=== PATIENT | male | born 1950 | race Caucasian/White ===

== ENCOUNTER 2017-01-09 17:39 | Inpatient (IN) ==
[2017-01-09] MEDS ORDERED: NS 1,000 ML IV ONE (17:52)
[2017-01-09] MEDS ORDERED: VANCOMYCIN IV PER PHARMACY MISC SCH (18:29)
[2017-01-09] MEDS ORDERED: LOVENOX SUBQ SCH (18:29)
[2017-01-09 18:42] LABS: MANUAL DIFF NEEDED? NO
[2017-01-09 18:45] LABS: BASO% 0.3 % (0.0-0.8); EOS% 2.5 % (0.0-10.0); HEMATOCRIT 43.7 % (42.0-52.0); HEMOGLOBIN 14.9 g/dL (14.0-18.0); IMM GRAN# 0.03 X1000 (0.0-0.04); IMM GRAN% 0.4 % (0.0-0.5); LYMPH# 0.85 X1000 (1.2-3.4); LYMPH% 10.7 % (20.5-51.1); MCH 32.6 PG (27-31); MCHC 34.1 g/dL (33-37); MCV 95.6 FL (81-99); MONO# 0.65 X1000 (0.11-0.59); MONO% 8.2 % (1.7-9.3); MPV 10.9 FL (7.4-10.4); NEUT% 77.9 % (42.2-75.2); PLT 135 X1000 (130-400); RBC 4.57 XMIL (4.7-6.1)
[2017-01-09 19:03] LABS: URINE MICRO REVIEW NEEDED? NO; URINE SOURCE CLEAN CATCH
[2017-01-09 19:05] LABS: AGAP 15; BUN 15 mg/dL (8-22); CALCIUM 8.3 mg/dL (8.8-10.2); CHLORIDE 100 mmol/L (98-107); COSMO 278; POTASSIUM 3.2 mmol/L (3.5-5.1); SODIUM 139 mmol/L (136-145); TCO2 24 mmol/L (25-35)
[2017-01-09 19:16] LABS: BILIRUBIN URINE NEGATIVE (NEGATIVE); BLOOD URINE NEGATIVE (NEGATIVE); COLOR YELLOW; GLUCOSE URINE NEGATIVE (NEGATIVE); LEUKOCYTES URINE NEGATIVE (NEGATIVE); NITRITE URINE NEGATIVE (NEGATIVE); PH URINE 7.5; PROTEIN URINE 300 mg/dL (NEGATIVE); SP GRAVITY URINE 1.014; TURBIDITY URINE CLEAR (CLEAR); UR EPITHELIAL CELLS <10 /HPF (<10); URINE BACTERIA NEGATIVE /HPF; URINE RBC <10 /HPF (<10); URINE WBC <10 /HPF (<10); UROBILINOGEN URINE NORMAL (NORMAL)
[2017-01-09] MEDS ORDERED: TOBRAMYCIN 100 MG in NS 100 ML IV ONE (19:30)
[2017-01-09] MEDS ORDERED: VIMPAT PO SCH ×2 (19:45→21:00)
[2017-01-09] MEDS: NS 1,000 ML IV SCH (19:59)
[2017-01-09] MEDS: ZOSYN 3.375 GM/NS 3.375 GM/50 ML IVPB IV SCH (20:00)
[2017-01-09] MEDS: TENEX PO SCH (20:01)
[2017-01-09] MEDS: COSOPT OPHTH SOLN BOTH EYES SCH (20:01)
[2017-01-09] MEDS: COREG PO SCH (20:01)
[2017-01-09] MEDS: TYLENOL PO PRN (20:01)
[2017-01-09] MEDS: ZOFRAN IV PRN (20:01)
[2017-01-09] MEDS: VIMPAT PO SCH (20:01)
[2017-01-09] MEDS ORDERED: LUMIGAN 0.01% OPH SOLUTION BOTH EYES SCH (21:00)
[2017-01-09] MEDS: VANCOMYCIN 1.6 GM in NS 250 ML IV SCH (22:49)
[2017-01-10] MEDS: ZOSYN 3.375 GM/NS 3.375 GM/50 ML IVPB IV SCH ×4 (02:05→20:42)
[2017-01-10] MEDS: TYLENOL PO PRN ×3 (03:06→18:24)
[2017-01-10] MEDS ORDERED: TENEX PO SCH (06:00)
[2017-01-10] MEDS: COZAAR PO SCH ×2 (06:35→08:03)
[2017-01-10] MEDS: COREG PO SCH ×3 (06:36→20:43)
[2017-01-10] MEDS: TENEX PO SCH ×3 (06:36→18:14)
[2017-01-10] MEDS: VIMPAT PO SCH ×2 (06:36→18:56)
--- NOTE | 2017-01-10 08:35 | PROGRESS NOTE ---
DATE: 01/10/2017 SUBJECTIVE: Mr. Oconnell has a longstanding history of hypertension. His blood pressure has been quite labile. Systolic blood pressures have ranged from 166-210, whereas his diastolic blood pressures have ranged from 84-102. He denies any chest pain, palpitations, or anginal equivalents. He does have a history of a glioblastoma multiforme. He is undergoing chemotherapy with Avastin. He had his last Avastin treatment on Sunday. Yesterday, he spiked fevers to 102 degrees in association with hard shaking rigors, nausea, and vomiting. Surprisingly, his white count was normal at 7900. He continues with persistent low-grade fevers. Temperature is ranging from 99.2-100. He is with complaint of a sore throat that hurts to swallow. He denies any further nausea, vomiting, or any abdominal pain. He is with complaint of a nonproductive cough. OBJECTIVE: Vital Signs: Temperature 99.2 degrees, pulse 60, respirations 80, BP 210/102. CV: Regular rate and rhythm with a soft systolic murmur at the left sternal margin. Lungs: Scattered coarse rhonchi. Abdomen: Soft, nontender, with active bowel sounds. ASSESSMENT AND PLAN: 1. Hypertension. His blood pressure is quite labile. We will increase the hydralazine to 100 mg three times a day and increase the Tenex to 2 mg twice a day. I would like to see his systolic blood pressures in the 140s and 150s. 2. Fever. The etiology of his fever is unclear. His white count is normal. He is an immunocompromised host. I am going to recheck a CBC and a BMP today. We will perform a rapid strep and repeat a portable chest x-ray. I will continue broad-spectrum antibiotics including Zosyn and vancomycin, pending cultures. We are holding Levaquin as he has a history of a seizure disorder. cc: Alicia Webster MD
[2017-01-10] MEDS ORDERED: APRESOLINE PO SCH ×4 (09:00→10:00)
[2017-01-10] MEDS ORDERED: COZAAR PO SCH (09:00)
[2017-01-10] MEDS: COSOPT OPHTH SOLN BOTH EYES SCH ×2 (09:19→20:43)
--- NOTE | 2017-01-10 09:37 | Diag Imaging Result Document ---
PROCEDURE NAME: CHEST-PORTABLE - 01/09/2017 SINGLE FRONTAL RADIOGRAPH OF THE CHEST: COMPARISON: 12/16/2010. FINDINGS: The lungs are grossly clear. There is no discrete pleural fluid collection or evidence of pneumothorax. The cardiomediastinal silhouette and upper airway are grossly unremarkable. IMPRESSION: No evidence of acute chest pathology.
[2017-01-10 10:08] LABS: MANUAL DIFF NEEDED? NO
[2017-01-10 10:14] LABS: BASO% 0.1 % (0.0-0.8); EOS% 1.4 % (0.0-10.0); HEMATOCRIT 39.6 % (42.0-52.0); HEMOGLOBIN 13.4 g/dL (14.0-18.0); IMM GRAN# 0.02 X1000 (0.0-0.04); IMM GRAN% 0.3 % (0.0-0.5); LYMPH# 0.61 X1000 (1.2-3.4); LYMPH% 8.5 % (20.5-51.1); MCH 32.8 PG (27-31); MCHC 33.8 g/dL (33-37); MCV 97.1 FL (81-99); MONO% 9.8 % (1.7-9.3); NEUT% 79.9 % (42.2-75.2); PLT 98 X1000 (130-400); RBC 4.08 XMIL (4.7-6.1)
[2017-01-10 10:45] LABS: POTASSIUM 3.6 mmol/L (3.5-5.1)
--- NOTE | 2017-01-10 11:15 | Diag Imaging Result Document ---
PROCEDURE NAME: CHEST-PORTABLE - 01/10/2017 PORTABLE UPRIGHT AP CHEST: COMPARISON: 01/09/2017. FINDINGS: The lungs are well expanded. The heart is not enlarged. The vessels are not distended. No infiltrates. No pleural effusions identified. IMPRESSION: No pneumonia.
[2017-01-10] MEDS: APRESOLINE PO SCH ×2 (13:34→18:14)
--- NOTE | 2017-01-10 14:48 | HISTORY AND PHYSICAL ---
HISTORY OF PRESENT ILLNESS: Mr. 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 He has undergone multiple rounds of chemotherapy since 2010 for the underlying tumor. He is currently taking Avastin. He was recently at [facility] where repeat scans have demonstrated that the tumor continues to regress. He had his last chemotherapy treatment with Avastin last Sunday. He came home at lunch time because he was feeling poorly. He had fever and her hard shaking rigors. He denied any nasal congestion, persistent cough, dysuria, increased urinary frequency, or abdominal pain. He did have nausea and vomiting. Mrs. Oconnell checked his temperature at home, and it was 102 degrees. Given his recent chemo treatment, I asked him to come to the ER for further evaluation. Fortunately, he has not had any complications with febrile neutropenia previously. On arrival to the ER, he had a persistent fever over 102 degrees with hard shaking rigors. His initial chest x-ray was clear. A CBC demonstrated a normal white count of 7000 with a left shift. Urinalysis was within normal limits. He had no localizing signs of infection. He does have a longstanding history of hypertension. His blood pressure has been fluctuating. His blood pressure was elevated in the ER. He had just taken his evening medicines when he had intractable nausea and vomiting. PAST MEDICAL HISTORY: As above. 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 ALLERGIES: No known drug allergies. FAMILY HISTORY: Father at the age of 63. He had pancreatic cancer. His mother at age 65. She had COPD. SOCIAL HISTORY: He has never smoked. He does consume alcoholic beverages. He lives with his spouse. MEDICATIONS: 1. Tenex 1 mg b.i.d. 2. Losartan 100 mg daily. 3. Hydralazine 100 mg t.i.d. 4. Coreg 25 mg b.i.d. 5. Vimpat 100 mg b.i.d. 6. Dorzolamide eye drops, 1 drop to each eye b.i.d. 7. Lumigan eyedrops 1 drop to each eye at bedtime. REVIEW OF SYSTEMS: He denies any recent weight gain or weight loss. HEENT: He wears glasses. CV: No chest pain, palpitations, or anginal equivalents. Pulmonary: No shortness of breath. GI: No reflux, dysphagia, melena, hematochezia. Endocrine: No polyuria, no polydipsia. Skin: No easy bruisability. Musculoskeletal: He has joint aches. Neurologic: No migraines. He does have a history of seizure disorder. He remains seizure free on Vimpat. Psychiatric: No history of depression. PHYSICAL EXAMINATION: GENERAL: This is a well-developed, well-nourished, 66-year-old, gentleman in no apparent distress. VITAL SIGNS: Temperature 102 degrees, pulse 88, respirations 16, BP 200/90. HEENT: Fundi with arteriolar wall thickening. Pupils equal, round, reactive to light. Extraocular eye movements intact. NECK: Supple. No masses, JVD or bruits. CV: Regular rate and rhythm. LUNGS: Clear. ABDOMEN: Soft, nontender, with active bowel sounds. EXTREMITIES: Without edema. SKIN: No palpable purpura. /RECTAL: Exams deferred. NEUROLOGIC: Nonfocal. ASSESSMENT AND PLAN: 1. Fever. His initial chest x-ray was unremarkable. He has a normal white count with a left shift. His urinalysis is clear. In the given of his history of an immunocompromised state and recent chemo treatment, I am concerned that this is an of Avastin-mediated fever. I will admit him to [facility]. I will begin broad-spectrum antibiotics including Zosyn, tobramycin and vancomycin. I will hold Levaquin because of his seizure disorder. We will check a urine culture, blood cultures x2, as well as a sputum culture. We will continue him on broad-spectrum antibiotics until he has been afebrile and his cultures come back negative. We did screen him for influenza A and B which were within normal limits. We will follow his counts closely. 2. Seizure disorder. Clinically, he is seizure free. We will continue Vimpat 100 mg b.i.d. 3. Hypertension. His blood pressure is too high. I am going to re-dose him with his evening blood pressure medicines and will follow his blood pressure closely. 4. Given his comorbid conditions and clinical presentation, I believe that admission to the hospital is necessary. I anticipate that he will be in the hospital for at least 2 midnights and I will, therefore, place him in inpatient status. Given his underlying tumor, he is at a high risk for deep venous thrombosis. I have spoken to his nursing consultant at [facility] who feels that it would be safe to give him Lovenox in the setting of Avastin, particularly since I am dosing it for his renal dysfunction. Mrs. Oconnell, however, is uncomfortable giving Lovenox, and we will hold it at her request. I will begin intermittent pneumatic compression hose for DVT prophylaxis. cc: Alicia Webster MD
[2017-01-10] MEDS ORDERED: SODIUM CHLORIDE 0.9% 10 ML ONE (18:11)
[2017-01-10] MEDS: ZOFRAN IV PRN (18:13)
--- NOTE | 2017-01-10 18:26 | CONSULTATION ---
DATE OF CONSULTATION: 01/10/2017 NEPHROLOGY CONSULTATION: REASON FOR CONSULTATION: Assistance with management particularly related to his hypertension. HISTORY OF PRESENT ILLNESS: Mr. Oconnell is a 66-year-old white male who has hypertension as well as a brain tumor. He has been through extensive treatment and management, most recently including a treatment at [facility] to limit the size of his tumor. He was referred to me initially because his hypertension was a barrier to him receiving Avastin. We treated his hypertension aggressively with moderate success, achieving systolic pressures in the 150-160 range, and he has been treated with Avastin. He has developed proteinuria associated with that. Otherwise no other new problems. He was admitted to the hospital because he developed temperature of 102 degrees at home over the weekend. He had approximately 24 hours of fatigue, weakness, prostration, and because of his fever he was brought to the emergency room where he was evaluated and admitted. Chest x-rays were performed which did not have evidence of pneumonia. All culture results so far have been negative and his flu screen has been negative as well. His temperature has improved since admission with a T-max of 100.2 degrees in the last 24 hours. In this context, his blood pressure has remained somewhat labile with systolic pressures ranging from 136 to 210. He had 1 diastolic reading of 132, but the family felt that was spurious because of technique. He currently continues to feel fatigued but has no other specific complaints. No anorexia, nausea, vomiting, headache, vision changes, sore throat, hoarseness, coughing, shortness of breath, nausea, vomiting, diarrhea, arthralgias, rashes, etc. PAST MEDICAL HISTORY: As above. HOME MEDICATION LIST: Includes losartan 100 mg daily, Vimpat 100 mg daily, Cosopt ophthalmic, Lumigan ophthalmic, carvedilol 25 b.i.d., hydralazine 100 t.i.d., furosemide 20 b.i.d., guanfacine 1 mg b.i.d. ALLERGIES: None. SOCIAL HISTORY: He is and lives with his . No tobacco use. FAMILY HISTORY: Noncontributory. REVIEW OF SYSTEMS: Otherwise noncontributory. PHYSICAL EXAMINATION: Vital Signs: Blood pressure 168/96, heart rate 60, respiration 18, temperature 99.2 degrees. General: He is a middle-aged man lying in bed, in no acute distress. Skin: Warm and dry. He is somewhat flushed in the face. HEENT: Conjunctivae are pink. Pupils are equal. Oropharynx is clear. Dentition normal. Neck: Supple. Trachea is midline. No jugular venous distention. Heart: Regular with a gallop. Lungs: Have equal breath sounds. No crackles or wheezes. Abdomen: Soft, nontender. Bowel sounds present. No organomegaly or masses. Extremities: Have no edema, clubbing, or cyanosis. LABORATORY DATA: Sodium 139, potassium 3.6, chloride 103, bicarbonate 27, BUN 13, creatinine 1.3. IMPRESSION: 1. Uncontrolled hypertension. I discussed the case directly with Dr. Webster. He has increased the next dose and we will observe his response to this treatment. His range of blood pressure medicine has been somewhat limited by side effects, especially swelling related to Norvasc and minoxidil. 2. Proteinuria. We will quantify. Thank you. cc: MD Alicia Benítez MD
[2017-01-10] MEDS: ADALAT CC PO SCH (20:43)
[2017-01-10] MEDS: LASIX PO SCH (20:44)
[2017-01-10] MEDS ORDERED: PATIENT'S OWN MED BOTH EYES SCH (21:00)
[2017-01-10] MEDS: VANCOMYCIN 1.6 GM in NS 250 ML IV SCH (23:47)
[2017-01-11] MEDS: NS 1,000 ML IV SCH ×3 (01:50→13:08)
[2017-01-11] MEDS: ZOSYN 3.375 GM/NS 3.375 GM/50 ML IVPB IV SCH ×3 (01:50→13:05)
[2017-01-11] MEDS: TYLENOL PO PRN (04:21)
[2017-01-11] MEDS: TENEX PO SCH (05:51)
[2017-01-11] MEDS: VIMPAT PO SCH (05:51)
[2017-01-11] MEDS ORDERED: SALINE LOCK IV FLUID XX ONE (08:10)
[2017-01-11 08:34] VITALS: BP 142/85
[2017-01-11] MEDS: LASIX PO SCH (08:46)
[2017-01-11] MEDS: COREG PO SCH (08:46)
[2017-01-11] MEDS: ADALAT CC PO SCH (08:47)
[2017-01-11] MEDS: COZAAR PO SCH (08:47)
[2017-01-11] MEDS ORDERED: APRESOLINE PO SCH (09:00)
--- NOTE | 2017-01-11 12:54 | PROGRESS NOTE ---
DATE: 01/11/2017 SUBJECTIVE: Mr. Oconnell still states he does not feel well. He had no fever overnight. No cough, sputum production, chest pain, nausea, or vomiting. Blood pressures have been erratic. OBJECTIVE: Vital Signs: Blood pressure 142/85, heart rate 66, respirations 20, afebrile. T-max 100.6 degrees. General: He is a middle-aged man, lying flat, in no distress. Skin: Warm and dry. Face remains flushed. Conjunctivae are pink. Pupils are equal. Neck: Neck veins not distended. Heart: Regular with a gallop. Lungs: Have equal breath sounds. No crackles or wheezes. Abdomen: Soft, nontender. Bowel sounds present. Extremities: Have no edema, clubbing, or cyanosis. LABORATORY DATA: None today. IMPRESSION: 1. Hypertension. In consultation with Dr. Webster, we have titrated his Tenex dose and also added nifedipine 30 mg a day. They are aware of the possible side effects, swelling, and its association with amlodipine. No changes today. We will continue to observe his response to these changes. 2. Proteinuria. A 24-hour urine in process. cc: MD Alicia Benítez MD
[2017-01-11] MEDS: COSOPT OPHTH SOLN BOTH EYES SCH (13:08)
[2017-01-11 16:51] LABS: UR CREATININE 100.9 mg/dL (14-26); UR PROTEIN 83.6 mg/dL
[2017-01-11 17:25] LABS: UR CREATININE TOTAL 1917.1 mg/24 (800-1800)
== END 2017-01-11 15:20 | disposition home or self-care (01) ==
LOC: DIRADM 17:39 → 3N 18:50
PROVIDERS: ADMIT Internal Medicine; ATTEND Internal Medicine